=== PATIENT | male | born 1950 | race African-American/Black ===

== ENCOUNTER 2022-02-28 16:18 | Inpatient (IN) | payer MEDICAID, MEDICARE ==
[~2022-02-28] VITALS: Ht 177.8 cm; Wt 131.4 kg
[~2022-02-28 16:18] MED LIST: DIPH-706 PO; EPIV150 PO; MIRT45TA83 PO; MORP30CA16 PO; OMEGA 3; OXYC500S PO; VERA120C PO; ZIDO300T13 PO; [UNRECOGNIZED DRUG - OTHER] PO
[2022-02-28] MEDS ORDERED: ALLO-97 PO (16:33)
[2022-02-28] MEDS ORDERED: TRAZ-257 PO (16:33)
[2022-02-28] MEDS ORDERED: ATOR40TA28 PO (16:33)
[2022-02-28] MEDS ORDERED: ELVI1TAB3 PO (16:33)
[2022-02-28] MEDS ORDERED: HYDR-4527 PO (16:33)
[2022-02-28] MEDS ORDERED: METO25XL PO (16:33)
[2022-02-28] MEDS ORDERED: DICL100G51 TP (16:33)
[2022-02-28] MEDS ORDERED: CYCL-397 PO (16:33)
[2022-02-28] MEDS ORDERED: OXYC10TA59 PO (16:33)
[2022-02-28] MEDS ORDERED: IPRATROPIUM BROMIDE 0.5 MG/2.5 ML NEB SOLUTION NEB ONE (17:30)
[2022-02-28] MEDS ORDERED: DEXAMETHASONE SOD PHOS 4 MG/ML VIAL IVP ONE (17:30)
[2022-02-28] MEDS ORDERED: ALBUTEROL SULFATE 2.5 MG/0.5 ML NEB SOLUTION NEB ONE ×2 (17:30→19:15)
[2022-02-28] MEDS ORDERED: ONDANSETRON HCL 4 MG/2 ML VIAL IVP ONE (17:45)
[2022-02-28 17:47] LABS: BASOPHILS % (AUTO) 0.8 % (0.0-2.0); EOSINOPHILS % (AUTO) 3.1 % (1.0-6.0); HEMOGLOBIN 11.7 g/dL (13.5-17.5); LYMPHOCYTES # (AUTO) 1.4 K/uL (1.0-4.8); LYMPHOCYTES % (AUTO) 18.3 % (22.0-44.0); MEAN CORPUSCULAR HEMOGLOBIN 33.8 pg (26.0-34.0); MEAN CORPUSCULAR HGB CONC 32.5 G/dL (31.0-37.0); MEAN CORPUSCULAR VOLUME 104 fL (80-100); MONOCYTES # (AUTO) 0.8 K/uL (0.1-1.0); NEUTROPHILS # (AUTO) 5.4 K/uL (1.8-7.7); NEUTROPHILS % (AUTO) 67.8 % (40.0-70.0); PLATELET COUNT (AUTO) 252 K/uL (150-450); RED BLOOD CELL COUNT(AUTO) 3.46 MIL/uL (4.50-5.90); RED CELL DISTRIBUTION WIDTH 13.1 % (11.5-14.5)
[2022-02-28 17:50] LABS: ANION GAP 9 mmol/L (8-16); CALCIUM, TOTAL 9.1 mg/dL (8.8-10.5); CARBON DIOXIDE 23 mmol/L (22-29); CHLORIDE 103 mmol/L (98-107); GLOMERULAR FILTR. RATE CALC 14 mL/min (>60); GLUCOSE,RANDOM 92 mg/dL (70-110); POTASSIUM 5.5 mmol/L (3.5-5.1); SODIUM SERUM 135 mmol/L (136-145); UREA NITROGEN, BLOOD 56 mg/dL (7-18)
[2022-02-28 17:53] LABS: INR 1.1 (0.9-1.1); PROTHROMBIN TIME 11.4 SEC (9.4-11.6)
[2022-02-28 18:10] LABS: B-TYPE NATRIURETIC PEPTIDE 40 pg/mL (0-100)
[2022-02-28 18:14] LABS: ALANINE AMINOTRANSFERASE 19 U/L (12-78); ALBUMIN 3.5 g/dL (3.4-5.0); ALKALINE PHOSPHATASE 72 U/L (46-116); ASPARTATE AMINOTRANSFERASE 21 U/L (15-37); BILIRUBIN,TOTAL 0.6 mg/dL (0.1-1.0); CREATINE KINASE, TOTAL ONLY 253 U/L (39-308); LIPASE 172 U/L (73-393); PHOSPHORUS 3.8 mg/dL (2.5-4.9); TOTAL PROTEIN, SERUM 8.4 g/dL (6.4-8.2)
[2022-02-28 18:35] LABS: COVID AG,FIA SOURCE NASOPHARYNGEAL
[2022-02-28 18:45] LABS: APPEARANCE,URINE CLEAR (CLEAR); BILIRUBIN,URINE NEGATIVE (NEGATIVE); GLUCOSE, URINE (UA) NEGATIVE (NEGATIVE); KETONES,URINE NEGATIVE (NEGATIVE); LEUKOCYTE ESTERASE ,URINE NEGATIVE (NEGATIVE); NITRATE,URINE NEGATIVE (NEGATIVE); OCCULT BLOOD,URINE NEGATIVE (NEGATIVE); PH,URINE 5.5 (5.0-8.0); PROTEIN,URINE 100-200,SEE CONFIRM mg/dL (NEGATIVE); SPECIFIC GRAVITIY, URINE 1.016 (1.003-1.030); UROBILINOGEN,URINE <=1.0 mg/dL (<=1.0)
[2022-02-28 18:49] LABS: AMPHET/METH SCREEN,URINE NEGATIVE (NEGATIVE); BARBITURATE SCREEN, URINE NEGATIVE (NEGATIVE); BENZODIAZEPINES SCREEN,URINE NEGATIVE (NEGATIVE); CANNABINOID SCREEN,URINE NEGATIVE (NEGATIVE); COCAINE SCREEN,URINE NEGATIVE (NEGATIVE); METHADONE SCREEN, URINE NEGATIVE (NEGATIVE); OPIATE SCREEN,URINE NEGATIVE (NEGATIVE)
[2022-02-28 18:51] LABS: PHENCYCLIDINE SCREEN,URINE NEGATIVE (NEGATIVE)
[2022-02-28 19:02] LABS: INFLUENZA TYPE A NEGATIVE FOR TYPE A (NEGATIVE); INFLUENZA TYPE B NEGATIVE FOR TYPE B (NEGATIVE)
[2022-02-28] MEDS ORDERED: OxyCODONE HCL/ACETAMINOPHEN 5-325 MG TABLET PO PRN ×2 (19:15)
[2022-02-28] MEDS ORDERED: ONDANSETRON HCL 4 MG/2 ML VIAL IVP PRN (19:15)
[2022-02-28] MEDS ORDERED: ACETAMINOPHEN 325 MG TABLET PO PRN (19:15)
[2022-02-28 19:16] LABS: SULFOSALICYLIC ACID,URINE 4+ (Negative)
[2022-02-28 19:26] LABS: BACTERIA,URINE None Seen /HPF (None Seen); RBC,URINE None Seen /HPF (0-2); WBC,URINE None Seen /HPF (0-5)
[2022-02-28] MEDS: DOCUSATE SODIUM 100 MG CAPSULE PO SCH (20:21)
[2022-02-28] MEDS: METOPROLOL TARTRATE 25 MG TABLET PO SCH (20:23)
[2022-02-28] MEDS: ALBUTEROL SULFATE 2.5 MG/0.5 ML NEB SOLUTION NEB SCH (23:25)
[2022-02-28] MEDS: HEPARIN SODIUM,PORCINE 5,000 UNITS/ML VIAL SQ SCH (23:43)
[2022-03-01] VITALS (7 sets, daily range): BP systolic 101–125; BP diastolic 55–71
[2022-03-01] MEDS: ALBUTEROL SULFATE 2.5 MG/0.5 ML NEB SOLUTION NEB SCH ×5 (07:16→23:39)
[2022-03-01] MEDS: METOPROLOL TARTRATE 25 MG TABLET PO SCH ×2 (09:00→21:23)
[2022-03-01] MEDS: DOCUSATE SODIUM 100 MG CAPSULE PO SCH ×2 (09:37→21:23)
[2022-03-01] MEDS: HEPARIN SODIUM,PORCINE 5,000 UNITS/ML VIAL SQ SCH ×3 (09:37→23:18)
[2022-03-01] MEDS: FAMOTIDINE 20 MG TABLET PO SCH (09:37)
[2022-03-01] MEDS: ATORVASTATIN CALCIUM 20 MG TABLET PO SCH (09:37)
[2022-03-01] MEDS: ASPIRIN 81 MG CHEWABLE TABLET PO SCH (09:37)
[2022-03-01] MEDS ORDERED: BARIUM SULFATE 0.1% SUSPENSION 450 ML BOTTLE ONE (10:19)
[2022-03-01] MEDS: BENZONATATE 100 MG CAPSULE PO PRN ×2 (14:56→23:18)
[2022-03-01] MEDS ORDERED: 0.9% SODIUM CHLORIDE 5 ML NEB SOLUTION NEB ONE (19:21)
[2022-03-01] MEDS: TraZODone HCL 50 MG TABLET PO PRN (23:18)
[2022-03-02 04:26] VITALS: BP 99/69
[2022-03-02] MEDS ORDERED: ONDA-104 PO (07:48)
[2022-03-02 07:55] VITALS: BP 119/64
[2022-03-02] MEDS ORDERED: GUAIFDM PO (07:58)
[2022-03-02] MEDS ORDERED: MAGNESIUM OXIDE 400 MG TABLET PO ONE (08:00)
[2022-03-02] MEDS: ALBUTEROL SULFATE 2.5 MG/0.5 ML NEB SOLUTION NEB SCH ×6 (08:01→22:48)
[2022-03-02] MEDS: ASPIRIN 81 MG CHEWABLE TABLET PO SCH (08:44)
[2022-03-02] MEDS: DOCUSATE SODIUM 100 MG CAPSULE PO SCH ×2 (08:44→21:33)
[2022-03-02] MEDS: METOPROLOL TARTRATE 25 MG TABLET PO SCH ×2 (08:45→21:34)
[2022-03-02] MEDS: ATORVASTATIN CALCIUM 20 MG TABLET PO SCH (08:45)
[2022-03-02] MEDS: FAMOTIDINE 20 MG TABLET PO SCH (08:45)
[2022-03-02] MEDS: HEPARIN SODIUM,PORCINE 5,000 UNITS/ML VIAL SQ SCH ×3 (08:51→23:49)
[2022-03-02 12:42] LABS: POTASSIUM 4.6 mmol/L (3.5-5.1)
[2022-03-02 12:43] LABS: CALCIUM, TOTAL 9.3 mg/dL (8.8-10.5); CREATININE 5.6 mg/dL (0.60-1.30); MAGNESIUM 2.2 mg/dL (1.80-2.40); PHOSPHORUS 4.8 mg/dL (2.5-4.9)
[2022-03-02] MEDS: GuaiFENesin/D-METHORPHAN [SUGAR-FREE] 200-20MG/10 ML SYRUP UDCUP PO PRN (14:46)
[2022-03-02 16:05] VITALS: BP 109/69
[2022-03-02 18:30] VITALS: BP 122/58
[2022-03-02 20:20] VITALS: BP 108/74
[2022-03-02] MEDS: TraZODone HCL 50 MG TABLET PO PRN (21:33)
[2022-03-02] MEDS: BENZONATATE 100 MG CAPSULE PO PRN (21:33)
[2022-03-03] MEDS: GuaiFENesin/D-METHORPHAN [SUGAR-FREE] 200-20MG/10 ML SYRUP UDCUP PO PRN ×2 (01:13→09:51)
[2022-03-03 04:50] VITALS: BP 109/55
[2022-03-03] MEDS: ALBUTEROL SULFATE 2.5 MG/0.5 ML NEB SOLUTION NEB SCH ×3 (07:39→13:30)
[2022-03-03] MEDS: HEPARIN SODIUM,PORCINE 5,000 UNITS/ML VIAL SQ SCH (08:25)
[2022-03-03] MEDS: ASPIRIN 81 MG CHEWABLE TABLET PO SCH (08:26)
[2022-03-03] MEDS: DOCUSATE SODIUM 100 MG CAPSULE PO SCH (08:26)
[2022-03-03] MEDS: ATORVASTATIN CALCIUM 20 MG TABLET PO SCH (08:26)
[2022-03-03] MEDS: FAMOTIDINE 20 MG TABLET PO SCH (08:27)
[2022-03-03 09:02] VITALS: BP 136/77
[2022-03-03] MEDS: METOPROLOL TARTRATE 25 MG TABLET PO SCH (09:14)
[2022-03-03] MEDS ORDERED: AZIT-104 PO (10:50)
[2022-03-03] MEDS ORDERED: FOLIC ACID/VIT B COMPLEX AND C TABLET PO SCH (11:45)
[2022-03-03] MEDS ORDERED: ALBU8HFA IH (14:27)
[2022-03-03] MEDS: BENZONATATE 100 MG CAPSULE PO PRN (15:41)
[2022-03-03 16:04] VITALS: BP 107/83
== END 2022-03-03 16:39 | disposition home or self-care (01) | DRG 391 ==
LOC: EMS 16:38 → 6S 03-01 01:21
PROVIDERS: ADMIT Internal Medicine; ATTEND Internal Medicine
PROC: 3E1M39Z Irrigation of Peritoneal Cavity using Dialysate, Percutaneous Approach (ICD-10-PCS; principal; 2022-03-01)
DX: A08.4 Viral intestinal infection, unspecified (principal); N18.6 End stage renal disease; B20 Human immunodeficiency virus [HIV] disease; E87.1 Hypo-osmolality and hyponatremia; I12.0 Hypertensive chronic kidney disease with stage 5 chronic kidney disease or end stage renal disease; J44.1 Chronic obstructive pulmonary disease with (acute) exacerbation; Z68.41 Body mass index [BMI] 40.0-44.9, adult; J40 Bronchitis, not specified as acute or chronic; F32.A Depression, unspecified; D63.8 Anemia in other chronic diseases classified elsewhere; E66.01 Morbid (severe) obesity due to excess calories; E87.5 Hyperkalemia; Z20.822 Contact with and (suspected) exposure to COVID-19; E78.00 Pure hypercholesterolemia, unspecified; F41.9 Anxiety disorder, unspecified; Z99.2 Dependence on renal dialysis; Z88.8 Allergy status to other drugs, medicaments and biological substances; Z79.899 Other long term (current) drug therapy; Z79.82 Long term (current) use of aspirin
CPT/HCPCS: 71045; 74176; 80048; 80053; 80307; 81001; 81002; 81003; 82550; 83690; 83735; 83880; 84100; 84484; 85025; 85610; 85730; 87081; 87804; 90945; 93005; 94640; 99291; G0480; J1100; J1644; J2405; Q9967; 36415-L1; 36415-TC; J7613; U0003